=== PATIENT | male | born 1990 | race American Indian/Alaskan Native ===

== ENCOUNTER 2019-03-31 22:29 | Observation (INO) | payer BC ==
[2019-03-31 23:34] LABS: Basophils # (Auto) 0.1 K/mm3 (0.0-0.1); Basophils % (Auto) 0.5 % (0.0-1.8); Eosinophils % (Auto) 0.1 % (0.0-4.3); Hematocrit 44.3 % (35.5-45.6); Hemoglobin 14.6 gm/dl (11.8-15.2); Lymphocytes # (Auto) 1.4 K/mm3 (1.2-5.4); Lymphocytes % (Auto) 9.3 % (13.4-35.0); Mean Corpuscular HGB Conc 33 % (32-34); Mean Corpuscular Volume 86 fl (84-94); Monocytes # (Auto) 0.7 K/mm3 (0.0-0.8); Monocytes % (Auto) 4.9 % (0.0-7.3); Platelet Count 210 K/mm3 (140-440); Red Blood Count 5.15 M/mm3 (3.65-5.03); Red Cell Distribution Width 14.8 % (13.2-15.2)
[2019-03-31 23:59] LABS: Alanine Aminotransferase 16 units/L (7-56); Albumin 4.3 g/dL (3.9-5); BUN/Creatinine Ratio 9; Blood Urea Nitrogen 9 mg/dL (9-20); Calcium 9.2 mg/dL (8.4-10.2); Hemolysis Index 17
[2019-04-01 00:33] LABS: Bilirubin,Urine NEG (Negative); Blood,Urine NEG (Negative); Color,Urine Yellow (Yellow); Mucus,Urine FEW /HPF; Protein,Urine <15 mg/dL mg/dL (Negative); Urobilinogen,Urine < 2.0 mg/dL (<2.0)
[2019-04-01] MEDS ORDERED: PEPCID IV ONE (00:56)
[2019-04-01] MEDS ORDERED: ZOFRAN IV ONE (00:56)
[2019-04-01] MEDS ORDERED: NACL 0.9% 1000 ML 1,000 ML IV ONE (00:56)
[2019-04-01] MEDS ORDERED: TORADOL IV ONE (00:56)
--- NOTE | 2019-04-01 02:25 | Cat Scan Report ---
CT abdomen pelvis wo con INDICATION: epigastric/ RLQ pain , elevated wbc. TECHNIQUE: All CT scans at this location are performed using the following dose modulation technique: Automated exposure control. CONTRAST: None. COMPARISON: None available. CT ABDOMEN: The parenchymal organs are unremarkable in appearance. Negative for abdominal mass, fluid collection or inflammation. The bowel is not dilated or thickened. An appendicolith is present at the base of the appendix which is thickened and demonstrates adjacent inflammation. Negative for free perforation or abscess. CT PELVIS: Negative for pelvic mass, fluid or inflammation. IMPRESSION: Acute appendicitis. Signer Name: Shree Carrasquillo MD Signed: 04/01/2019 2:21 AM Workstation Name: [id number]
[2019-04-01] MEDS ORDERED: ZOSYN/NS 4.5GM/100ML 4.5 GM/100 ML VIAL IV ONE (02:37)
--- NOTE | 2019-04-01 02:44 | Emergency Department Report ---
ED Abdominal Pain HPI - General Chief Complaint: Abdominal Pain Stated Complaint: ABDOMINAL PAIN Time Seen by Provider: 04/01/19 00:42 Source: patient Mode of arrival: Ambulatory Limitations: No Limitations - History of Present Illness Initial Comments: Patient is a 28-year-old Lebanese male who is presenting with abdominal pain. Patient states the abdominal pain started approximately 12 hours ago and was in the epigastrium is sent her abdomen. Patient states he now has some right lower quadrant discomfort as well. He has had several episodes of nausea vomiting and believes that his pain started after eating, earlier today. Patient states he f eels as though if he could have a bowel movement each feel better. Patient denies fevers chills cough, congestion. Severity scale (0 -10): 5 - Related Data Allergies Allergy/AdvReac Type Severity Reaction Status Date / Time iodine Allergy Swelling Verified 03/31/19 23:45 sea foods Allergy Swelling Uncoded 03/31/19 23:45 ED Review of Systems ROS: Stated complaint: ABDOMINAL PAIN Other details as noted in HPI Comment: All other systems reviewed and negative ED Past Medical Hx - Past Medical History Previous Medical History?: No - Surgical History Past Surgical History?: No - Social History Smoking Status: Current Every Day Smoker Substance Use Type: Marijuana ED Physical Exam - General Limitations: No Limitations General appearance: alert, in no apparent distress - Head Head exam: Present: atraumatic, normocephalic - Eye Eye exam: Present: normal appearance, PERRL, EOMI. Absent: scleral icterus, conjunctival injection - ENT ENT exam: Present: normal exam, normal orophraynx, mucous membranes moist - Neck Neck exam: Present: normal inspection - Respiratory Respiratory exam: Present: normal lung sounds bilaterally. Absent: respiratory distress, wheezes, rales, rhonchi - Cardiovascular Cardiovascular Exam: Present: regular rate, normal rhythm, normal heart sounds. Absent: systolic murmur, diastolic murmur, rubs, gallop - GI/Abdominal GI/Abdominal exam: Present: soft, tenderness (RLQ), normal bowel sounds. Absent: distended, guarding, rebound, rigid - Rectal Rectal exam: Present: deferred - Extremities Exam Extremities exam: Present: normal inspection - Back Exam Back exam: Present: normal inspection - Neurological Exam Neurological exam: Present: alert, oriented X3 - Psychiatric Psychiatric exam: Present: normal affect, normal mood - Skin Skin exam: Present: warm, dry, intact, normal color. Absent: rash ED Course Vital Signs 03/31/19 04/01/19 22:54 00:48 Temperature 98.3 F Pulse Rate 70 62 Respiratory 20 19 Rate Blood Pressure 150/100 Blood Pressure 145/80 [Right] O2 Sat by Pulse 99 98 Oximetry - Reevaluation(s) Reevaluation #1: 04/01/19 02:[address] Ellis with general surgery who advised the patient is to be nothing by mouth and started on antibiotics. Patient will also be admitted to the hospitalist service under Dr. Gutiérrez ED Medical Decision Making - Lab Data Result diagrams: 03/31/19 23:15 03/31/19 23:15 - Radiology Data [facility] [address] [place] [address] Cat Scan Report Signed Patient: BETSY JONES MR#: [id number] : 1990 Acct:[id number] Age/Sex: 28 / M ADM Date: 03/31/19 Loc: ED Attending Dr: Ordering Physician: KHAI GORE MD Date of Service: 04/01/19 Procedure(s): CT abdomen pelvis wo con Accession Number(s): [id number] cc: KHAI GORE MD CT abdomen pelvis wo con INDICATION: epigastric/ RLQ pain , elevated wbc. TECHNIQUE: All CT scans at this location are performed using the following dose modulation technique: Automated exposure control. CONTRAST: None. COMPARISON: None available. CT ABDOMEN: The parenchymal organs are unremarkable in appearance. Negative for abdominal mass, fluid collection or inflammation. The bowel is not dilated or thickened. An appendicolith is present at the base of the appendix which is thickened and demonstrates adjacent inflammation. Negative for free perforation or abscess. CT PELVIS: Negative for pelvic mass, fluid or inflammation. IMPRESSION: Acute appendicitis. Signer Name: Shree Carrasquillo MD Signed: 04/01/2019 2:21 AM Workstation Name: [id number] Transcribed By: STEVE Dictated By: Shree Carrasquillo MD Electronically Authenticated By: Shree Carrasquillo MD Signed Date/Time: 04/01/19 022 Critical Care Time: Yes (30) Critical care attestation.: If time is entered above; I have spent that time in minutes in the direct care of this critically ill patient, excluding procedure time. ED Disposition Clinical Impression: Acute appendicitis Disposition: DC-09 OP ADMIT IP TO THIS HOSP Is pt being admited?: Yes Does the pt Need Aspirin: No Condition: Stable Time of Disposition: 02:47
[2019-04-01] MEDS: NACL 0.9% 1000 ML 1,000 ML IV SCH ×3 (04:00→21:25)
[2019-04-01] MEDS ORDERED: ZOFRAN IV PRN (05:05)
[2019-04-01] MEDS ORDERED: DILAUDID IV PRN (05:05)
[2019-04-01] MEDS ORDERED: MORPHINE IV PRN (05:05)
[2019-04-01] MEDS ORDERED: TYLENOL PO PRN (05:05)
[2019-04-01] MEDS ORDERED: SODIUM CHLORIDE FLUSH SYRINGE 10 ML IV PRN (05:05)
--- NOTE | 2019-04-01 05:05 | History and Physical Report ---
History of Present Illness Chief complaint: Abdominal pain History of present illness: 28-year-old man with no significant past medical history who presents with abdominal pain 12 hours. The pain started else periumbilical and then moved to the right lower quadrant. The pain started out mild to became very severe 10 out of 10. He did have nausea or vomiting x several episodees. He initially thought the pain was related to his food that he eats. But the pain did not improve with digesting food, then he did try to have a bowel movement thinking that would improve his symptoms. Again the patient had no relief. He took [id number] medications or no relief. After which he came to the ER for evaluation. Patient admits to daily marijuana abuse Past History Past Medical History: No medical history Past Surgical History: No surgical history Social history: other (marijuana abuse, daily use) Family history: no significant family history Medications and Allergies Allergies Allergy/AdvReac Type Severity Reaction Status Date / Time iodine Allergy Swelling Verified 03/31/19 23:45 sea foods Allergy Swelling Uncoded 03/31/19 23:45 Active Meds: Active Medications Sodium Chloride (Nacl 0.9% 1000 Ml) 1,000 mls @ 150 mls/hr IV DIRECT RICK Last Admin: 04/01/19 04:00 Dose: 150 mls/hr Documented by: Review of Systems All systems: negative Constitutional: fatigue Ears, nose, mouth and throat: no ear pain Cardiovascular: no chest pain Respiratory: no cough Gastrointestinal: abdominal pain, nausea, vomiting Genitourinary Male: no dysuria Rectal: no pain Musculoskeletal: no neck stiffness Integumentary: no rash Neurological: no head injury Psychiatric: no anxiety Endocrine: no cold intolerance Hematologic/Lymphatic: no easy bruising Allergic/Immunologic: no urticaria Exam - Constitutional Vitals: Temp Pulse Resp BP Pulse Ox 98 F 56 L 20 143/94 98 04/01/19 04:07 04/01/19 04:07 04/01/19 04:07 04/01/19 04:07 04/01/19 04:07 General appearance: Present: mild distress, well-nourished - EENT Eyes: Present: PERRL ENT: hearing intact, clear oral mucosa - Neck Neck: Present: supple, normal ROM - Respiratory Respiratory effort: normal Respiratory: bilateral: CTA - Cardiovascular Heart Sounds: Present: S1 & S2. Absent: rub, click - Extremities Extremities: pulses symmetrical, No edema Peripheral Pulses: within normal limits - Abdominal General gastrointestinal: Present: soft, non-distended, normal bowel sounds Localized gastrointestinal: tender: RLQ, guarding: RLQ Male genitourinary: Present: normal - Integumentary Integumentary: Present: clear, warm, dry - Musculoskeletal Musculoskeletal: gait normal, strength equal bilaterally - Psychiatric Psychiatric: appropriate mood/affect, intact judgment & insight - Neurologic Neurologic: CNII-XII intact, moves all extremities Results - Labs CBC & Chem 7: 03/31/19 23:15 03/31/19 23:15 Labs: Laboratory Last Values WBC 14.9 K/mm3 (4.5-11.0) H 03/31/19 23:15 RBC 5.15 M/mm3 (3.65-5.03) H 03/31/19 23:15 Hgb 14.6 gm/dl (11.8-15.2) 03/31/19 23:15 Hct 44.3 % (35.5-45.6) 03/31/19 23:15 MCV 86 fl (84-94) 03/31/19 23:15 MCH 28 pg (28-32) 03/31/19 23:15 MCHC 33 % (32-34) 03/31/19 23:15 RDW 14.8 % (13.2-15.2) 03/31/19 23:15 Plt Count 210 K/mm3 (140-440) 03/31/19 23:15 Lymph % (Auto) 9.3 % (13.4-35.0) L 03/31/19 23:15 Charles % (Auto) 4.9 % (0.0-7.3) 03/31/19 23:15 Eos % (Auto) 0.1 % (0.0-4.3) 03/31/19 23:15 Baso % (Auto) 0.5 % (0.0-1.8) 03/31/19 23:15 Lymph # 1.4 K/mm3 (1.2-5.4) 03/31/19 23:15 Charles # 0.7 K/mm3 (0.0-0.8) 03/31/19 23:15 Eos # 0.0 K/mm3 (0.0-0.4) 03/31/19 23:15 Baso # 0.1 K/mm3 (0.0-0.1) 03/31/19 23:15 Seg Neutrophils % 85.2 % (40.0-70.0) H 03/31/19 23:15 Seg Neutrophils # 12.7 K/mm3 (1.8-7.7) H 03/31/19 23:15 Sodium 142 mmol/L (137-145) 03/31/19 23:15 Potassium 4.1 mmol/L (3.6-5.0) 03/31/19 23:15 Chloride 101.6 mmol/L (98-107) 03/31/19 23:15 Carbon Dioxide 28 mmol/L (22-30) 03/31/19 23:15 17 mmol/L 03/31/19 23:15 BUN 9 mg/dL (9-20) 03/31/19 23:15 1.0 mg/dL (0.8-1.5) 03/31/19 23:15 Estimated GFR > 60 ml/min 03/31/19 23:15 9 % 03/31/19 23:15 Glucose 114 mg/dL (75-100) H 03/31/19 23:15 Calcium 9.2 mg/dL (8.4-10.2) 03/31/19 23:15 0.20 mg/dL (0.1-1.2) 03/31/19 23:15 AST 16 units/L (5-40) 03/31/19 23:15 ALT 16 units/L (7-56) 03/31/19 23:15 99 units/L (35-129) 03/31/19 23:15 7.4 g/dL (6.3-8.2) 03/31/19 23:15 4.3 g/dL (3.9-5) 03/31/19 23:15 1.4 % 03/31/19 23:15 21 units/L (13-60) 03/31/19 23:15 Yellow (Yellow) 03/31/19 00:15 Clear (Clear) 03/31/19 00:15 6.0 (5.0-7.0) 03/31/19 00:15 Ur Specific Lincoln 1.027 (1.003-1.030) 03/31/19 00:15 <15 mg/dl mg/dL (Negative) 03/31/19 00:15 Neg mg/dL (Negative) 03/31/19 00:15 Neg mg/dL (Negative) 03/31/19 00:15 Neg (Negative) 03/31/19 00:15 Neg (Negative) 03/31/19 00:15 Neg (Negative) 03/31/19 00:15 < 2.0 mg/dL (<2.0) 03/31/19 00:15 Ur Leukocyte Esterase Sm (Negative) 03/31/19 00:15 22.0 /HPF (0.0-6.0) H 03/31/19 00:15 1.0 /HPF (0.0-6.0) 03/31/19 00:15 U Epithel Cells (Auto) 1.0 /HPF (0-13.0) 03/31/19 00:15 Few /HPF 03/31/19 00:15 Assessment and Plan Assessment and plan: 28-year-old man who presents with abdominal pain CT abdomen and pelvis; image reviewed; appendicolith is present at the base of the appendix which is thickened and demonstrates adjacent inflammation, negative for perforation or abscess UA, 22 wbc Acute appendicitis Surgery was called by ER. Keep nothing by mouth and antibiotics. Plan for possible appendectomy UTI on abx, fup urine culture Marijuana abuse/dependence Preventative health counseling performed for 17 minutes DVT prophylaxis; early ambulation
[2019-04-01] MEDS ORDERED: NACL 0.9% 1000 ML 1,000 ML IV SCH (08:00)
--- NOTE | 2019-04-01 08:15 | Consultation ---
History of Present Illness Consult date: 04/01/19 Reason for consult: abdominal pain Requesting physician: KHAI GORE Chief complaint: RLQ pain - History of present illness History of present illness: 28-year-old male presented with abdominal pain. Pain began yesterday in the upper abdomen Patient states he now has some right lower quadrant discomfort as well. He has had several episodes of nausea vomiting and believes that his pain started after eating yesterday. Patient states he feels as though if he could have a bowel movement each feel better. Patient denies fevers chills cough, congestion. Pain is better now with pain meds. No other issues. Past History Past Medical History: No medical history Past Surgical History: No surgical history Social history: smoking (<1 ppd), other (marijuana abuse, daily use). denies: alcohol abuse, prescription drug abuse, IV drug use Family history: no significant family history Medications and Allergies Allergies Allergy/AdvReac Type Severity Reaction Status Date / Time iodine Allergy Swelling Verified 03/31/19 23:45 sea foods Allergy Swelling Uncoded 03/31/19 23:45 Home Medications Medication Instructions Recorded Confirmed Last Taken Type No Known Home Medications [No 04/01/19 04/01/19 Unknown History Reported Home Medications] Active Meds: Active Medications Acetaminophen (Tylenol) 650 mg PO Q4H PRN PRN Reason: Pain MILD(1-3)/Fever >100.5/SIGALA Hydromorphone HCl (Dilaudid) 0.25 mg IV Q3H PRN PRN Reason: Pain , Severe (7-10) Sodium Chloride (Nacl 0.9% 1000 Ml) 1,000 mls @ 150 mls/hr IV DIRECT RICK Last Admin: 04/01/19 04:00 Dose: 150 mls/hr Documented by: Piperacillin Sod/Tazobactam Sod (Zosyn/Ns 4.5gm/100ml) 4.5 gm in 100 mls @ 200 mls/hr IV Q8H RICK; Protocol Sodium Chloride (Nacl 0.9% 1000 Ml) 1,000 mls @ 0 mls/hr IV ONCE RICK Stop: 04/02/19 08:01 Morphine Sulfate (Morphine) 2 mg IV Q4H PRN PRN Reason: Pain, Moderate (4-6) Ondansetron HCl (Zofran) 4 mg IV Q4H PRN PRN Reason: Nausea And Vomiting Sodium Chloride (Sodium Chloride Flush Syringe 10 Ml) 10 ml IV BID RICK Sodium Chloride (Sodium Chloride Flush Syringe 10 Ml) 10 ml IV PRN PRN PRN Reason: LINE FLUSH Review of Systems - Constitutional no fever, no chills, no chronic pain - Cardiovascular no chest pain, no shortness of breath - Respiratory no cough - Gastrointestinal abdominal pain, nausea, vomiting, change in bowel habits, no hematemesis, no coffee ground emesis, no BRBPR, no melena, no hematochezia - Genitourinary no dysuria - Muskuloskeletal no low back pain - Integumentary no rash, no redness, no sores, no wounds Exam Vital Signs Temp Pulse Resp BP Pulse Ox 98.3 F 70 20 150/100 99 03/31/19 22:54 03/31/19 22:54 03/31/19 22:54 03/31/19 22:54 03/31/19 22:54 - General physical appearance Positive: no distress, no pain, obese, other (does not appear toxic) - Eyes Positive: normal occular movement - Respiratory Positive: normal expansion, normal respiratory effort, clear to auscultation - Cardiovascular Rhythm: regular - Abdomen Abdomen: Present: soft, tender (in RLQ and some in the suprapubic area. rest is benign), bowel sounds hypoactive. Absent: distended, masses, rebound, guarding, rigid, wound, surgical scars - Integumentary no rash, no growths, no abnormal pigmentation - Neurologic Neurologic: alert and oriented to time, place and person, motor strength and sensation are grossly intact - Psychiatric Psychiatric: appropriate mood/affect, intact judgment & insight, cooperative Results - Labs 03/31/19 23:15 03/31/19 23:15 Abnormal lab results 03/31/19 03/31/19 03/31/19 Range/Units 00:15 23:15 23:15 WBC 14.9 H (4.5-11.0) K/mm3 RBC 5.15 H (3.65-5.03) M/mm3 Lymph % (Auto) 9.3 L (13.4-35.0) % Seg Neutrophils % 85.2 H (40.0-70.0) % Seg Neutrophils # 12.7 H (1.8-7.7) K/mm3 Glucose 114 H (75-100) mg/dL Urine WBC (Auto) 22.0 H (0.0-6.0) /HPF Diabetes panel 03/31/19 Range/Units 23:15 Sodium 142 (137-145) mmol/L Potassium 4.1 (3.6-5.0) mmol/L Chloride 101.6 (98-107) mmol/L Carbon Dioxide 28 (22-30) mmol/L BUN 9 (9-20) mg/dL Creatinine 1.0 (0.8-1.5) mg/dL Glucose 114 H (75-100) mg/dL Calcium 9.2 (8.4-10.2) mg/dL AST 16 (5-40) units/L ALT 16 (7-56) units/L Alkaline Phosphatase 99 (35-129) units/L Total Protein 7.4 (6.3-8.2) g/dL Albumin 4.3 (3.9-5) g/dL Calcium panel 03/31/19 Range/Units 23:15 Calcium 9.2 (8.4-10.2) mg/dL Albumin 4.3 (3.9-5) g/dL Pituitary panel 03/31/19 Range/Units 23:15 Sodium 142 (137-145) mmol/L Potassium 4.1 (3.6-5.0) mmol/L Chloride 101.6 (98-107) mmol/L Carbon Dioxide 28 (22-30) mmol/L BUN 9 (9-20) mg/dL Creatinine 1.0 (0.8-1.5) mg/dL Glucose 114 H (75-100) mg/dL Calcium 9.2 (8.4-10.2) mg/dL Adrenal panel 03/31/19 Range/Units 23:15 Sodium 142 (137-145) mmol/L Potassium 4.1 (3.6-5.0) mmol/L Chloride 101.6 (98-107) mmol/L Carbon Dioxide 28 (22-30) mmol/L BUN 9 (9-20) mg/dL Creatinine 1.0 (0.8-1.5) mg/dL Glucose 114 H (75-100) mg/dL Calcium 9.2 (8.4-10.2) mg/dL Total Bilirubin 0.20 (0.1-1.2) mg/dL AST 16 (5-40) units/L ALT 16 (7-56) units/L Alkaline Phosphatase 99 (35-129) units/L Total Protein 7.4 (6.3-8.2) g/dL Albumin 4.3 (3.9-5) g/dL - Imaging CT scan - abdomen: report reviewed, image reviewed CT scan - pelvis: report reviewed, image reviewed Assessment and Plan - Patient Problems (1) Acute appendicitis Current Visit: Yes Status: Acute Qualifiers: Acute appendicitis type: with localized peritonitis Appendicitis gangrene presence: unspecified whether gangrene present Appendicitis perforation presence: unspecified whether perforation present Appendicitis abscess pr esence: unspecified whether abscess present Qualified Code(s): K35.30 - Acute appendicitis with localized peritonitis, without perforation or gangrene Plan to address problem: Pt stable. clinical exam fits with CT findings. Recommend surgery. discussed surgrey vs medical therapy. Risks and benefits discussed for each. Pt elected to have surgery. Procedure, risks, benefits discussed. All questions answered. Consent obtained. To OR today. Time=30min
[2019-04-01] MEDS ORDERED: ZEMURON IV ONE (08:56)
[2019-04-01] MEDS ORDERED: XYLOCAINE MPF 2% ONE (08:56)
[2019-04-01] MEDS ORDERED: SUBLIMAZE ONE ×2 (08:56→12:40)
[2019-04-01] MEDS ORDERED: VERSED ONE (08:56)
[2019-04-01] MEDS ORDERED: DIPRIVAN 10 MG/ML IV ONE (08:56)
[2019-04-01] MEDS: SODIUM CHLORIDE FLUSH SYRINGE 10 ML IV SCH ×2 (09:40→21:26)
[2019-04-01] MEDS ORDERED: ZOSYN/NS 4.5GM/100ML 4.5 GM/100 ML VIAL IV SCH (10:00)
--- NOTE | 2019-04-01 10:50 | Anesthesia Consultation ---
Anesthesia Consult and Med Hx Date of service: 04/01/19 - Airway Anesthetic Teeth Evaluation: Good ROM Head & Neck: Adequate Mental/Hyoid Distance: Adequate Mallampati Class: Class III Intubation Access Assessment: Probably Good - Pulmonary Exam CTA: Yes - Cardiac Exam Cardiac Exam: RRR - Pre-Operative Health Status ASA Pre-Surgery Classification: ASA2 Proposed Anesthetic Plan: General - Pulmonary Hx Smoking: Yes - Other Systems Hx Obesity: Yes (BMI 45 )
--- NOTE | 2019-04-01 10:52 | Anesthesia Day of Surgery ---
Anesthesia Day of Surgery - Day of Surgery Patient Examined: Yes Patient H&P Reviewed: Yes Patient is NPO: Yes Beta Blockers: No
[2019-04-01] MEDS ORDERED: NACL 0.9% 1000 ML 1,000 ML ONE (11:43)
[2019-04-01] MEDS ORDERED: XYLOCAINE 1% 20 mL ONE (11:59)
[2019-04-01] MEDS ORDERED: MARCAINE 0.25% INFILTRATI ONE ×2 (11:59→13:06)
[2019-04-01] MEDS ORDERED: ROBINUL ONE ×2 (12:38→13:18)
[2019-04-01] MEDS ORDERED: WATER FOR IRRIG STERILE IR ONE (13:06)
[2019-04-01] MEDS ORDERED: XYLOCAINE 1% 20 mL INFILTRATI ONE (13:06)
[2019-04-01] MEDS ORDERED: NACL 0.9% IR ONE (13:07)
[2019-04-01] MEDS ORDERED: ZOFRAN ONE (13:08)
[2019-04-01] MEDS ORDERED: TORADOL ONE (13:08)
[2019-04-01] MEDS ORDERED: DECADRON ONE (13:08)
[2019-04-01] MEDS ORDERED: BLOXIVERZ ONE (13:18)
[2019-04-01] MEDS ORDERED: NORCO 5/325 PO PRN (13:46)
--- NOTE | 2019-04-01 13:48 | Post Operative Note ---
Date of procedure: 04/01/19 (Dictation: [id number]) Pre-op diagnosis: acute appendicitis Post-op diagnosis: same Findings: thickened, inflamed appendix with adhesions to surrounding areas. Procedure: lap appy IVF 300cc EBL min Anesthesia: GETA Surgeon: VIK BURK Estimated blood loss: minimal Pathology: list (appendix) Specimen disposition: to lab Condition: stable Disposition: PACU
--- NOTE | 2019-04-01 18:21 | Operative Report ---
PREOPERATIVE DIAGNOSIS: Acute appendicitis. POSTOPERATIVE DIAGNOSIS: Acute appendicitis. PROCEDURE: Laparoscopic appendectomy. ATTENDING PHYSICIAN: Peter Ellis MD ANESTHESIA: General. ESTIMATED BLOOD LOSS: Minimal. FLUIDS: 300 mL. FINDINGS: Thickened inflamed appendix with adhesions to surrounding tissues. SPECIMENS: Appendix. DRAINS: None. COMPLICATIONS: None. DISPOSITION: Stable, transferred to Recovery Room. INDICATIONS: This is a 28-year-old male who presented with a less than 24-hour history of abdominal pain that localized to right lower quadrant. CT scan showed evidence consistent with acute appendicitis. The patient is assessed to be need for appendectomy. Procedure, risks, benefits were explained to the patient. Risks included but were not limited to infection, bleeding, pain, injury to surrounding structures, possible need for further procedures in the future. The patient understood and consented. OPERATIVE NOTE: The patient brought to the operating room and placed on the table in supine position. After adequate general anesthesia was established, the patient was prepped and draped in the usual sterile fashion. The patient was already on antibiotics. SCDs had been placed. Timeout was called. I placed a Veress needle in left upper quadrant. I was able to insufflate on the first attempt. Using the Optiview technique, I placed a 5 mm port at the umbilicus. I entered the peritoneal cavity safely. There was no injury to the underlying structures. In examining the area under the Veress needle, there was no injury to the underlying structures. Veress needle was removed. Under direct vision, a 5 mm port was placed in the suprapubic area and then a 12 mm port in the left lower quadrant. The patient was placed in Trendelenburg, rotated to the left. The appendix was sitting on top of the intestines. It was easily identified. Using the LigaSure device, I all the adhesions and then I divided the mesoappendix with the LigaSure device all the way to the base. We cleared off the base very nicely. Laparoscopic stapler was then passed with a blue load, I divided the base. We had a flush staple line with the cecum. It was completely hemostatic. There was no evidence of any purulent fluid in the vicinity. No evidence of rupture. Appendix appeared to be completely intact. It was placed in the EndoCatch bag left on the side. We cleaned up the area by dabbing it with gauze. Everything looked to be very good, very clean. No need for any irrigation or control of any bleeding as we did not have any. We then removed the EndoCatch bag from the left lower quadrant port site. We had to stretch out the fascia in order to get it out. I then closed that fascia using the Humberto-Darryn fascial closure device with an 0 Vicryl stitch. It closed very nicely. It was airtight. We then removed the other ports under direct vision, desufflated the abdomen, injected additional local into all the port sites. I closed the skin with 4-0 Monocryl subcuticular stitches. Skin was cleaned and dried. Dermabond was placed. The patient tolerated the procedure well. There were no complications. All counts were correct at the end of the case. Of note, I spoke with the at the end of the case. JOB# [id number] GABBY/ARTHUR
--- NOTE | 2019-04-01 19:45 | Progress Note ---
Assessment and Plan Acute appendicitis S/p lap appendectomy stable UTI on abx, f/u urine culture DVT PPx with heparin Dispositon: D/c tomorrow Subjective Date of service: 04/01/19 Principal diagnosis: acute appendicitis Interval history: Had appendectomy today. doing well Objective - Constitutional Vitals: Vital Signs - 12hr 04/01/19 04/01/19 04/01/19 08:05 11:25 11:45 Temperature 97.9 F 98.4 F 98.4 F Pulse Rate 61 60 60 Respiratory 17 18 18 Rate Blood Pressure 151/98 143/91 143/91 Blood Pressure [Left] O2 Sat by Pulse 98 99 99 Oximetry 04/01/19 04/01/19 04/01/19 13:34 13:40 13:45 Temperature 97.0 F L Pulse Rate 70 66 69 Respiratory 12 16 16 Rate Blood Pressure 146/100 143/86 138/92 Blood Pressure [Left] O2 Sat by Pulse 95 96 97 Oximetry 04/01/19 04/01/19 04/01/19 13:50 14:05 14:20 Temperature 97.4 F L 97.5 F L Pulse Rate 62 68 69 Respiratory 17 17 16 Rate Blood Pressure 134/89 140/94 133/82 Blood Pressure [Left] O2 Sat by Pulse 98 96 97 Oximetry 04/01/19 04/01/19 14:30 14:34 Temperature 97.3 F L 97.3 F L Pulse Rate 51 L 60 Respiratory 15 15 Rate Blood Pressure 131/94 Blood Pressure 131/94 [Left] O2 Sat by Pulse 97 Oximetry General appearance: Present: no acute distress, well-nourished - EENT Eyes: PERRL, EOM intact ENT: hearing intact, clear oral mucosa Ears: bilateral: normal - Neck Neck: supple, normal ROM - Respiratory Respiratory effort: normal Respiratory: bilateral: CTA - Cardiovascular Rhythm: regular Heart Sounds: Present: S1 & S2. Absent: gallop, rub Extremities: pulses intact, No edema, normal color, Full ROM - Gastrointestinal General gastrointestinal: Present: soft, non-tender, tender (post op), non- distended, normal bowel sounds - Integumentary Integumentary: clear, warm, dry - Musculoskeletal Musculoskeletal: 1, strength equal bilaterally - Neurologic Neurologic: moves all extremities - Psychiatric Psychiatric: memory intact, appropriate mood/affect, intact judgment & insight - Labs CBC & Chem 7: 08/31/19 05:16 04/02/19 05:16 Labs: Abnormal lab results 03/31/19 03/31/19 03/31/19 Range/Units 00:15 23:15 23:15 WBC 14.9 H (4.5-11.0) K/mm3 RBC 5.15 H (3.65-5.03) M/mm3 Lymph % (Auto) 9.3 L (13.4-35.0) % Seg Neutrophils % 85.2 H (40.0-70.0) % Seg Neutrophils # 12.7 H (1.8-7.7) K/mm3 Glucose 114 H (75-100) mg/dL Urine WBC (Auto) 22.0 H (0.0-6.0) /HPF
[2019-04-02 05:42] LABS: Basophils % (Auto) 0.3 % (0.0-1.8); Hematocrit 40.1 % (35.5-45.6); Hemoglobin 13.2 gm/dl (11.8-15.2); Lymphocytes # (Auto) 1.4 K/mm3 (1.2-5.4); Lymphocytes % (Auto) 9.3 % (13.4-35.0); Mean Corpuscular HGB Conc 33 % (32-34); Mean Corpuscular Volume 87 fl (84-94); Monocytes # (Auto) 0.6 K/mm3 (0.0-0.8); Monocytes % (Auto) 4.4 % (0.0-7.3); Platelet Count 184 K/mm3 (140-440); Red Blood Count 4.64 M/mm3 (3.65-5.03); Red Cell Distribution Width 14.9 % (13.2-15.2)
[2019-04-02 05:52] LABS: BUN/Creatinine Ratio 10; Blood Urea Nitrogen 10 mg/dL (9-20); Calcium 8.7 mg/dL (8.4-10.2); Hemolysis Index 4
--- NOTE | 2019-04-02 11:53 | Discharge Summary ---
Providers - Providers Date of Admission: 04/01/19 05:03 Date of discharge: 04/02/19 Attending physician: RADHA WAKEFIELD 04/01/19 05:05 Consult to Physician [CONS] Routine Comment: Consulting Provider: VIK BURK Physician Instructions: Reason For Exam: appendicitis [facility] Reason for admission: Acute appendicitis Condition: Stable Pertinent studies: CT scan of the abdomen and pelvis showed evidence of acute appendicitis Procedures: Laparoscopic appendectomy Hospital course: 28-year-old man with no significant past medical history who presents with abdominal pain 12 hours. The pain started else periumbilical and then moved to the right lower quadrant. The pain started out mild to became very severe 10 out of 10. He did have nausea or vomiting x several episodees. He initially thought the pain was related to his food that he eats. But the pain did not improve with digesting food, then he did try to have a bowel movement thinking that would improve his symptoms. Again the patient had no relief. He took [id number] medications or no relief. After which he came to the ER for evaluation. CT scan of the abdomen showed evidence of acute appendicitis. Ash gical consult was obtained. Lap appendectomy was done. Had uneventful recovery. Throat regular diet. Discharged today to follow primary care physician in 3 days and the surgeon in 7 days. Condition at discharge was satisfactory. Disposition: DC-01 TO HOME OR SELFCARE Time spent for discharge: 35 mins - Discharge Diagnoses (1) Acute appendicitis Status: Acute Qualifiers: Acute appendicitis type: with localized peritonitis Appendicitis gangrene presence: unspecified whether gangrene present Appendicitis perforation presence: unspecified whether perforation present Appendicitis abscess presence: unspecified whether abscess present Qualified Code(s): K35.30 - Acute appendicitis with localized peritonitis, without perforation or gangrene Core Measure Documentation - Palliative Care Palliative Care/ Comfort Measures: Not Applicable - Core Measures Any of the following diagnoses?: none Exam - Physical Exam Narrative exam: Constitutional: Well-nourished well-developed. In no distress Head: Normocephalic atraumatic Eyes: Pupils are equal round and reactive to light Nose: No enlarged turbinates, no septal deviation. Mouth: Moist mucous membranes. Neck: Supple no thyromegaly. No bruit. No JVD Heart: Regular rate and rhythm, S1-S2 normal. No rubs murmurs or gallop Lungs: Clear to auscultation bilaterally. no rales or rhonchi Abdomen: Soft, nontender. Bowel sound are present. Extremities: No edema, no cyanosis, no clubbing. Neuro: Alert oriented Oriented x3. No focal sensory or motor deficit. Skin: No rashes or hyperpigmented spots Musculoskeletal system: No joint pain or swelling Hematological: No petechia or subcutanous hemorrhages. Immunological: No multiple septic spots on the skin Lymphatic: No generalized lymphadenopathy Psychiatry: Euthymic. Calm. - Constitutional Vitals: Temp Pulse Resp BP Pulse Ox 98.6 F 56 L 16 133/82 98 04/02/19 05:14 04/02/19 05:14 04/02/19 05:14 04/02/19 05:14 04/02/19 05:14 Plan Weight Bearing Status: Non-Weight Bearing Diet: regular Follow up with: [facility] YVETTE [Primary Care Provider] - 3 Days VIK BURK MD [Staff Physician] - 7 Days Prescriptions: levoFLOXacin [Levaquin] 750 mg PO QDAY #5 tablet HYDROcodone/APAP 5-325 [[place] 5-325 mg TAB] 2 each PO Q8H PRN #8 tablet PRN Reason: Pain, Moderate (4-6)
[2019-04-02 14:44] VITALS: BP 161/98
--- NOTE | 2019-04-03 20:46 | Post Anesthesia Evaluation ---
- Post Anesthesia Evaluation Patient Participated: Yes Airway Patent: Yes Stable Respiratory Function: Yes Nausea/Vomiting: No Temp > 96.8F: Yes Pain Manageable: Yes Adequeate Hydration: Yes Anesthesia Complications: No Block Receding Appropriately: Not Applicable Patient on Ventilator: No
== END 2019-04-02 13:45 | disposition home or self-care (01) ==
LOC: ED 22:29 → 3B-SURG 04-01 05:03
PROVIDERS: ADMIT Internal Medicine; ATTEND Family Medicine
DX: K35.80 Unspecified acute appendicitis (principal); N39.0 Urinary tract infection, site not specified; F12.20 Cannabis dependence, uncomplicated
CPT/HCPCS: 36415; 44970; 74176; 80048; 80053; 81001; 83690; 85025; 87086; 88304; 96365; 96375; 99284; G0378; J1100; J1885; J2250; J2405; J2543; J2704; J2710; J3010; J7030